=== PATIENT | female | born 1950 ===

== ENCOUNTER 2021-11-23 18:55 | Inpatient (IN) ==
[2021-11-23] MEDS ORDERED: ZALEPLON 5 MG CAPSULE PO PRN (20:58)
[2021-11-23] MEDS: NITROGLYCERIN 2% OINT 1 INCH/GM PACK TOP SCH (21:46)
[2021-11-24 00:43] LABS: Basophils # 0.1 10*3/uL (0.0-0.2); Eosinophils # 0.3 10*3/uL (0.0-0.87); Eosinophils % 5.3 % (0.00-10.9); Hematocrit 30.7 VOL% (35.7-47.0); Hemoglobin 9.8 GM/DL (12.0-16.0); Immature Granulocytes % 0.5 %; Immature Granulocytes Absolute 0.03 #; Lymphocytes # 2.6 10*3/uL (1.4-4.0); Lymphocytes % 41.7 % (21.3-54.2); Mean Corpuscular HGB Conc 31.9 GM/DL (32-36); Mean Corpuscular Volume 93.9 FL (87-102); Mean Platelet Volume 9.4 FL (9.6-12.0); Monocytes # 0.7 10*3/uL (0.11-0.8); Monocytes % 11.6 % (1.7-12.7); Neutrophils % 39.9 % (38.7-73.9); Platelet Count 217 T/CUMM (130-400); Red Blood Count 3.27 MC/CUMM (3.8-5.5); Red Cell Distribution Width 14.1 % (9.3-17.3); White Blood Count 6.2 T/CUMM (4-12)
[2021-11-24 01:04] LABS: Alanine Aminotransferase 18 U/L (13-56); Albumin 2.8 G/DL (3.4-5.0); Alkaline Phosphatase 87 U/L (45-117); Aspartate Amino Transferase 19 U/L (0-37); Bilirubin,Total < 0.39 MG/DL (0.20-1.00); Blood Urea Nitrogen 23 MG/DL (7-18); Calcium 8.8 MG/DL (8.5-10.1); Carbon Dioxide 24 MMOL/L (21-32); Chloride 113 MMOL/L (98-107); Cholesterol 181 MG/DL (50-200); Glucose 117 MG/DL (74-106); HDL Cholesterol 61 MG/DL (40-60); Osmolality,Calculated 290.8 MOS/KG (273-304); Potassium 3.7 MMOL/L (3.5-5.1); Risk Ratio 2.97; Sodium 144 MMOL/L (136-145); Total Protein 6.1 G/DL (6.4-8.2); Triglycerides 92 MG/DL (2-150); VLDL Cholesterol 18.4 MG/DL
[2021-11-24 01:06] LABS: Eosinophils 7 % (0-10); Lymphocytes 39 % (20-55); Platelet Estimate Adequate; Total Cells Counted 100
[2021-11-24] MEDS: NITROGLYCERIN 2% OINT 1 INCH/GM PACK TOP SCH ×4 (03:35→21:27)
[2021-11-24] MEDS ORDERED: MAGNESIUM SULF RIDER 2 GM/50 ML PREMIX IV PRN (07:39)
[2021-11-24] MEDS ORDERED: DIAZEPAM 5 MG TABLET PO ONE (07:39)
[2021-11-24] MEDS ORDERED: diphenhydrAMINE CAP 50 MG CAPSULE PO ONE (07:39)
[2021-11-24] MEDS ORDERED: POTASSIUM CHLORIDE RIDER 10 MEQ/100 ML PREMIX IV PRN (07:39)
[2021-11-24] MEDS ORDERED: POLYETHYLENE GLYCOL POWDER 17 GM PACK PO PRN (08:30)
[2021-11-24] MEDS ORDERED: tiZANidine 4 MG TABLET PO PRN (08:30)
[2021-11-24] MEDS ORDERED: ASPIRIN EC 325 MG TABLET PO SCH (09:00)
[2021-11-24] MEDS ORDERED: CALCIUM CITRATE VITAMIN D3 PO SCH (09:00)
[2021-11-24] MEDS ORDERED: ERGOCALCIFEROL 50,000 UNIT CAPSULE PO SCH (09:00)
[2021-11-24] MEDS: ASPIRIN CHEW 81 MG TABLET PO SCH (09:05)
[2021-11-24] MEDS: lisinopriL 20 MG TABLET PO SCH (09:05)
[2021-11-24] MEDS: traMADol 50 MG TABLET PO SCH ×3 (09:05→20:14)
[2021-11-24] MEDS: ROSUVASTATIN 20 MG TABLET PO SCH (09:05)
[2021-11-24] MEDS: FUROSEMIDE 20 MG TABLET PO SCH (09:06)
[2021-11-24] MEDS: GABAPENTIN 400 MG CAPSULE PO SCH ×2 (09:06→20:14)
[2021-11-24] MEDS ORDERED: NITROGLYCERIN DRIP 50 MG/250 ML BOTTLE IV ONE (13:05)
[2021-11-24] MEDS ORDERED: HEPARIN/NACL 0.9% 2 UNITS/ML 2,000 UNIT/1,000 ML BAG IV ONE (13:05)
[2021-11-24] MEDS ORDERED: VERAPAMIL 5 MG/2 ML VIAL ONE (13:05)
[2021-11-24] MEDS ORDERED: MIDAZOLAM 2 MG/2 ML VIAL ONE (14:08)
[2021-11-24] MEDS ORDERED: HYDROmorphone 1 MG/1 ML SYRINGE ONE (14:08)
[2021-11-24] MEDS ORDERED: ENOXAPARIN 30 MG/0.3 ML SYRINGE ONE (14:23)
[2021-11-24] MEDS ORDERED: ENOXAPARIN 80 MG/0.8 ML SYRINGE SUBCUT SCH (21:00)
[2021-11-25] MEDS: NITROGLYCERIN 2% OINT 1 INCH/GM PACK TOP SCH (03:35)
[2021-11-25 05:30] LABS: Basophils # 0.1 10*3/uL (0.0-0.2); Basophils % 0.7 % (0.0-0.8); Eosinophils # 0.2 10*3/uL (0.0-0.87); Eosinophils % 2.7 % (0.00-10.9); Hematocrit 31.8 VOL% (35.7-47.0); Hemoglobin 9.9 GM/DL (12.0-16.0); Immature Granulocytes % 0.4 %; Immature Granulocytes Absolute 0.03 #; Lymphocytes # 2.3 10*3/uL (1.4-4.0); Lymphocytes % 33.9 % (21.3-54.2); Mean Corpuscular HGB Conc 31.1 GM/DL (32-36); Mean Corpuscular Volume 96.7 FL (87-102); Monocytes # 0.7 10*3/uL (0.11-0.8); Monocytes % 10.2 % (1.7-12.7); Neutrophils % 52.1 % (38.7-73.9); Platelet Count 235 T/CUMM (130-400); Red Blood Count 3.29 MC/CUMM (3.8-5.5); Red Cell Distribution Width 14.1 % (9.3-17.3); White Blood Count 6.7 T/CUMM (4-12)
[2021-11-25 05:47] LABS: Potassium 4.2 MMOL/L (3.5-5.1)
[2021-11-25] MEDS ORDERED: ACETAMINOPHEN 500 MG TABLET PO ONE (08:53)
[2021-11-25] MEDS ORDERED: METOPROLOL SUCCINATE XL 25 MG TABLET PO SCH (09:00)
[2021-11-25] MEDS ORDERED: DAPAGLIFLOZIN 10 MG TABLET PO SCH (09:00)
[2021-11-25] MEDS: ASPIRIN CHEW 81 MG TABLET PO SCH (09:48)
[2021-11-25] MEDS: ROSUVASTATIN 20 MG TABLET PO SCH (09:49)
[2021-11-25] MEDS: FUROSEMIDE 20 MG TABLET PO SCH (09:49)
[2021-11-25] MEDS: GABAPENTIN 400 MG CAPSULE PO SCH (09:49)
[2021-11-25] MEDS: lisinopriL 20 MG TABLET PO SCH (09:49)
[2021-11-25] MEDS: traMADol 50 MG TABLET PO SCH (09:50)
[2021-11-25 12:19] VITALS: BP 134/67
== END 2021-11-25 13:36 | disposition home or self-care (01) | DRG 281 ==
LOC: SUATTDRO 20:32 → N.TELES 20:32
PROVIDERS: ADMIT Internal Medicine; ATTEND Internal Medicine